=== PATIENT | female | born 1970 | race Caucasian/White ===

== ENCOUNTER 2020-05-18 17:49 | Emergency (ER) | payer OTHER, SELFPAY ==
--- NOTE | ~2020-05-18 | XR_ITS ---
[XR ribs LT 2V w CXR 2V ] INDICATION: Left rib pain after lifting injury TECHNIQUE: Frontal projection of the upper left ribs, frontal projection of the lower left ribs, obli que projection of all the left ribs, frontal inspiratory and lateral chest x-ray for interpretation. FINDINGS: There are no displaced rib fractures identified. There are no soft tissue abnormality see n. The lungs are clear. IMPRESSION: 1:No displaced rib fractures. Reviewed, dictated and finalized at location [employer]
[2020-05-18 17:56] VITALS: BP 146/78; PULSE 57; RESP 16; TEMP 36.4; O2SAT 100
--- NOTE | 2020-05-18 18:30 | ED.CHESTPAIN ---
HPI - Chest Pain General Chief Complaint: Chest Pain Stated Complaint: lt side pain Time Seen by Provider: 05/18/20 18:30 Source: patient and RN notes reviewed Mode of arrival: ambulatory Limitations: no limitations History of Present Illness HPI narrative: 49-year-old female who presents to [facility] with complaints of pain to her left lateral side for the past 4 days. She reports that she was lifting a piece of furniture and hit a wall with furniture hitting her in hr left lateral side. Then 2 days ago she was at work and the freezer went out and she had to move a punch of heavy meat out of the freezer which has aggravated her pain. She states that pain increases with movement and with deep breathing. Patient has clear lungs upon auscultation, denies any shortness of breath with noted guarding to left lateral side with palpation, no bruising or redness noted. Patient states that he pain is sharp and has been taking Ibuprofen with no improvement in her discomfort. MD complaint: other (left lateral side pain) Onset (ago): week(s) (4) Timing of current episode: still present Prior episodes: No Pain radiation: none Severity: moderate Pain scale (0-10): 6 Quality: sharp Exacerbating factors: movement and other (deep breathing) Context: trauma/injury Treatment prior to arrival: other (Ibuprofen) Risk Factors Coronary artery disease risk factors: smoking history Thoracic aortic dissection risk factors: none Related Data On Oral Contraceptives: No Allergies Allergy/AdvReac Type Severity Reaction Status Date / Time No Known Allergies Allergy Verified 05/18/20 18:06 Review of Systems Review of Systems: Narrative: CONSTITUTIONAL: Denies fever, chills, or sweats. EYES: Denies visual changes, redness, or discharge. ENT: Denies rhinorrhea, congestion, sore throat, or otalgia. CARDIOVASCULAR: Denies chest pain, palpitations, or edema.positive for left lateral side discomfort below breast area RESPIRATORY: Denies cough or dyspnea.increase pain with movement and deep breathing GASTROINTESTINAL: Denies abdominal pain, nausea, vomiting, or diarrhea. GENITOURINARY: Denies dysuria or hematuria. SKIN: Denies rash or itching. MUSCULOSKELETAL: Denies back pain, joint pain, or myalgia. NEUROLOGIC: Denies headache, numbness, or weakness. PSYCHIATRIC: Denies anxiety or depression. All systems reviewed & are unremarkable except as noted in HPI and below PMFSH Past Medical History Medical History (Updated 05/21/20 @ 10:20 by Cristiana Kam NP) Iron deficiency anemia Surgical History Surgical History (Updated 05/21/20 @ 10:30 by Cristiana Kam NP) Gastric bypass status for obesity H/O exploratory laparotomy Family History Family History (Updated 05/21/20 @ 10:22 by Cristiana Kam NP) Other No significant family history Social History Social History (Updated 05/21/20 @ 10:22 by Cristiana Kam NP) Smoking packs per day: 0.5 Smoking cigarettes per day: 10.0 Years smoked: 20 Smoking pack-years: 10.00 Smoking status: Current every day smoker Tobacco type: cigarettes Alcohol intake: unknown Substance use: never Living arrangements: with family Gender identity (if verbalized by the patient): Female Comments At time of signature, agree with nursing past medical, surgical, social and family history. There is no relevant family history pertinent to the presenting complaint Exam Narrative: Exam Narrative: GENERAL: Well-appearing, well-nourished, and in mild acute distress. HEAD: Normocephalic, atraumatic. EYES: PERRLA and EOMI. ENT: Nares clear, no rhinorrhea or epistaxis. Mucous membranes moist.TM's normal with good light reflex, throat pink with no lesions or exudates no tonsil enlargement NECK: Supple.no lymphadenopathy CHEST: Clear to auscultation. No respiratory distress.pain to left lateral side to area below breast, no dyspnea noted or tachypnea or accessory muscle use. Pain with dep breathing and
== END 2020-05-18 18:53 | disposition home or self-care (01) ==
PROVIDERS: Emergency Provider Registered Nurse
DX: M94.0 Chondrocostal junction syndrome [Tietze] (principal); F17.219 Nicotine dependence, cigarettes, with unspecified nicotine-induced disorders; Z98.84 Bariatric surgery status
CPT/HCPCS: 71046; 71100; 99203; G0463